=== PATIENT | female | born 1945 | race Caucasian/White ===

== ENCOUNTER 2018-05-06 11:09 | Emergency (ER) | payer OTHER ==
[2018-05-06 11:48] VITALS: TEMP 98; BMI 25.0
--- NOTE | 2018-05-06 12:15 | PDOC ---
History of Present Illness - General Chief Complaint: Muscle Cramping Stated Complaint: MUSCLE SPASM Time Seen by Provider: 05/06/18 11:56 History Source: Patient Exam Limitations: No Limitations - History of Present Illness Initial Comments: CHIEF COMPLAINT: 72 y/o afebrile female with PMH PFO, Depression, Anxiety, Hiatal hernia, HLD c/o anxiety, shaking and abdominal pain. HISTORY OF PRESENT ILLNESS: The patient states that about 1.5 weeks ago she had an episode of anxiety and shaking. She was seen at an Urgent care, was diagnosed with Serotonin Syndrome and told to stop taking her Prozac, as her 80mg dose was too high. She followed up with her Neurologist and a new psychiatrist, who prescribed her 20mg of prozac, which she restarted last week. She states she was also told to discontinue her prilosec, as it can interact with prozac. She states her upper abdomen has been hurting so much so she took a prilosec yesterday. This morning she woke up and she states her entire body got cold, she started shaking and started getting very anxious. She admits to bad upper abdominal pain, palpitations this morning and no normal BMs in a few days. She denies fever, vomiting, diarrhea, CP, SOB, back pain, hematuria, dysuria. Vital signs on arrival are within normal limits REVIEW OF SYSTEMS: GENERAL/CONSTITUTIONAL: No fever. +chills and shaking today. HEAD, EYES, EARS, NOSE AND THROAT: No change in vision. No ear pain or discharge. No sore throat. CARDIOVASCULAR: +palpitations. No chest pain or shortness of breath. RESPIRATORY: No cough, wheezing, or hemoptysis. GASTROINTESTINAL: +upper abd pain, nausea, constipation. No diarrhea. GENITOURINARY: No dysuria, frequency, or change in urination. MUSCULOSKELETAL: +extremity shaking. No neck or back pain. SKIN: No rash or easy bruising. PSYCHIATRIC: +depression and anxiety. NEUROLOGIC: No headache, vertigo, loss of consciousness, or loss of sensation. PHYSICAL EXAM: GENERAL: The patient is awake, alert, and fully oriented, in no acute distress. She is well appearing, ambulatory and pleasant. She appears slightly anxious with some repetitive hand movements. HEAD: Normal with no signs of trauma. ENT: Pupils equal, round and reactive to light, extraocular movements intact, sclera anicteric, conjunctiva clear. LUNGS: Clear to auscultation bilaterally. Normal excursion. No respiratory distress or use of accessory muscles. CV: RRR, S1/S2, no MRG. Cap refill < 2 sec. ABDOMEN: Soft, non-distended, non-tender even to deep palpation, no hepatomegaly or splenomegaly, no masses. EXTREMITIES: Normal range of motion, no edema. No calf TTP b/l. No erythema, edema or active shaking to extremities. NEUROLOGICAL: Normal speech, normal gait. CN II-XII grossly intact. PSYCH: Somewhat anxious demeanor. SKIN: Warm, dry, normal turgor, no rashes or lesions noted. Past History - Past Medical History Allergies/Adverse Reactions: Allergies Allergy/AdvReac Type Severity Reaction Status Date / Time Penicillins Allergy Verified 05/06/18 11:25 Home Medications: Ambulatory Orders Aspirin [Ecotrin] 325 mg PO DAILY 05/06/18 Fluoxetine HCl [Prozac -] 20 mg PO DAILY 05/06/18 Quetiapine Fumarate [Seroquel -] 50 mg PO HS 05/06/18 Ranitidine [Zantac -] 150 mg PO DAILY 05/06/18 Simvastatin [Zocor] 10 mg PO HS 05/06/18 Sucralfate [Carafate -] 1 gm PO QID #60 tablet 05/06/18 clonazePAM [Klonopin -] 0.5 mg PO BID 05/06/18 Cardiac Disorders: Yes (pfo) CVA: Yes (2001) COPD: No - Suicide/Smoking/Psychosocial Hx Smoking History: Unknown if ever smoked *Physical Exam - Vital Signs Last Vital Signs Temp Pulse Resp BP Pulse Ox 98 F 60 18 134/74 100 05/06/18 11:10 05/06/18 11:10 05/06/18 11:10 05/06/18 11:10 05/06/18 11:10 ED Treatment Course - LABORATORY CBC & Chemistry Diagram: 05/06/18 12:23 05/06/18 12:23 Medical Decision Making - Medical Decision Making A/P: 72 y/o afebrile female with anxiety, shaking, palpitations, upper abd pain and constipation on and off for the past 1.5 weeks. Plan is as follows: 1. EKG 2. Labs 3. UA/culture 4. Abd xray 5. IV fluids 6. IV pepcid/zofran/protonix 7. PO carafate EKG - normal Labs normal UA normal Abd xray - no acute pathology Gallbladder ultrasound - normal Gave patient all of her results. She states the Carafate helped a lot. Will discharge to home with rx for carafate. She does have a GI appointment scheduled for next week and I suggested she keep that appointment. Instructed her to return to the ER with any worsening or concerning symptoms. The patient verbalizes understanding of all instructions, has no further questions and is awaiting discharge. *DC/Admit/Observation/Transfer Diagnosis at time of Disposition: Anxiety, Epigastric pain - Discharge Dispostion Disposition: HOME Condition at time of disposition: Improved - Referrals - Patient Instructions Printed Discharge Instructions: DI for Epigastric Pain, DI for Anxiety -- Adult Additional Instructions: Discharge Instructions: -Your blood work, urine test, xray and gallbladder ultrasound were all normal -A prescription for medication for your stomach has been sent to your pharmacy -Please keep your follow up appointment with your Dry[employer] Professional scheduled for next week -Return to the ER with any worsening or concerning symptoms - Post Discharge Activity
[2018-05-06] MEDS ORDERED: FAMOTIDINE 20 MG/50 ML IVPB 20 MG/50 ML MG IVPB ONE ×2 (12:20→13:12)
[2018-05-06] MEDS ORDERED: SUCRALFATE 1 GM TABLET (FP) PO ONE (12:20)
[2018-05-06] MEDS ORDERED: PANTOPRAZOLE SODIUM 40 MG VIAL IVPUSH ONE (12:20)
[2018-05-06] MEDS ORDERED: ONDANSETRON 4 MG/2 ML VIAL IVPUSH ONE (12:26)
[2018-05-06] MEDS ORDERED: ONDANSETRON 4 MG/2 ML VIAL ONE (12:26)
[2018-05-06 12:37] LABS: BASO % 0.8 % (0-2.0); EOS % 0.8 % (0-4.5); HEMOGLOBIN 13.6 GM/dL (10.7-15.3); LYMPH % 20.7 % (8-40); MCH 31.6 pg (25.7-33.7); MCHC 33.3 g/dl (32.0-36.0); MEAN CELL VOLUME 95.1 fl (80-96); MEAN PLT VOLUME 7.4 fl (7.5-11.1); NEUT % 69.7 % (42.8-82.8); PLATELET COUNT 266 K/MM3 (134-434); RBC 4.31 M/mm3 (3.60-5.2); RDW 12.9 % (11.6-15.6); WHITE BLOOD COUNT 8.2 K/mm3 (4.0-10.0)
[2018-05-06] MEDS ORDERED: SODIUM CHLORIDE 1,000 ML IV STA (12:38)
[2018-05-06 12:59] LABS: ALBUMIN 3.9 g/dl (3.4-5.0); ANION GAP 12 MMOL/L (8-16); BILIRUBIN,TOTAL 0.6 mg/dL (0.2-1.0); BLOOD UREA NITROGEN 16 mg/dL (7-18); CALCIUM 8.9 mg/dL (8.5-10.1); CHLORIDE 107 mmol/L (98-107); CO2 25 mmol/L (21-32); CREATININE 0.7 mg/dL (0.55-1.3); GLUCOSE,RANDOM 103 mg/dL (74-106); MAGNESIUM 2.3 mg/dL (1.8-2.4); POTASSIUM 3.6 mmol/L (3.5-5.1); SGOT/AST 16 U/L (15-37); SGPT/ALT 18 U/L (13-61); SODIUM 144 mmol/L (136-145); TOT PROT 6.7 g/dl (6.4-8.2)
[2018-05-06 13:02] LABS: ALK PHOS 106 U/L (45-117)
[2018-05-06] MEDS ORDERED: SUCRALFATE 1 GM TABLET (FP) ONE (13:11)
[2018-05-06] MEDS ORDERED: PANTOPRAZOLE SODIUM 40 MG VIAL ONE (13:11)
[2018-05-06 14:19] LABS: URINE APPEARANCE Clear; URINE BILIRUBIN Negative (<2.0 mg/dL); URINE COLOR Yellow; URINE GLUCOSE (UA) Negative (NEGATIVE); URINE KETONE Negative (NEGATIVE); URINE LEUK ESTERASE Negative (NEGATIVE); URINE NITRITE Negative (NEGATIVE); URINE PROTEIN Negative (NEGATIVE); URINE UROBILINOGEN 0.2 mg/dL (0.2-1.0)
[2018-05-06 14:23] LABS: PH,URINE 8.5 (5.0-8.0)
[2018-05-06 16:16] VITALS: BP 116/63; PULSE 86
--- NOTE | 2018-05-08 22:03 | EKG ---
Test Reason : Blood Pressure : / mmHG Vent. Rate : 053 BPM Atrial Rate : 053 BPM P-R Int : 170 ms QRS Dur : 090 ms QT Int : 446 ms P-R-T Axes : 031 032 050 degrees QTc Int : 418 ms SINUS BRADYCARDIA OTHERWISE NORMAL ECG NO PREVIOUS ECGS AVAILABLE Confirmed by PAYAL BRAGG MD ([id number]) on 05/08/2018 10:03:01 PM Referred By: Confirmed By:PAYAL BRAGG MD
== END 2018-05-06 16:17 | disposition home or self-care (01) ==
LOC: JER 11:09
PROC: 3E033GC Introduction of Other Therapeutic Substance into Peripheral Vein, Percutaneous Approach (ICD-10-PCS; principal; 2018-05-06)
PROC: 3E0337Z Introduction of Electrolytic and Water Balance Substance into Peripheral Vein, Percutaneous Approach (ICD-10-PCS; 2018-05-06)
DX: R10.13 Epigastric pain (principal); F41.8 Other specified anxiety disorders
CPT/HCPCS: 36415; 74019-TC-FY; 76705-TC; 80053; 81003; 82550; 82553; 83735; 84484; 85025; 87086; 93005; 93010; 96361; 96365; 96375; 99284-25; J7030